=== PATIENT | male | born 1980 | race Caucasian/White ===

== ENCOUNTER 2017-07-09 17:09 | Emergency (ER) | payer SELFPAY ==
[~2017-07-09] VITALS: Ht 182.9 cm; Wt 124.7 kg
[2017-07-09] MEDS ORDERED: IBUP-2055 PO (18:44)
--- NOTE | 2017-07-09 19:01 | ED Chest Pain ---
General Chief Complaint: Chest Wall/Rib Pain Stated Complaint: RIB PAIN Nursing Triage Note: to ER with reports of cough x 2-3 months, but more specifically right rib pain x 4 days. Patient reports that he was coughing so hard the other day, that he "felt a pop" and began having right sided rib pain. Denies any trauma. Nursing Sepsis Screen: No Definite Risk Source: patient History of Present Illness Time seen by provider: 18:40 Initial Comments PT ARRIVES VIA POV FROM HOME C/O PRODUCTIVE COUGH X 2-3 MONTHS AND GETTING WORSE SPUTUM INITIALLY WAS CLEAR, NOW IS GREEN 4 DAYS AGO, HE WAS COUGHING REAL HARD AND HEARD/FELT SOMETHING "POP AND CRACK-- LIKE A CHICKEN BONE SNAPPING" IN RIGHT LOWER RIB AREA AND HAS HAD SEVERE PAIN IN THIS AREA SINCE THEN SLIGHT SHORTNESS OF BREATH, BUT MOSTLY JUST HURTS TO COUGH NO FEVER/SWEATS/CHILLS NO HISTORY OF RESPIRATORY PROBLEMS PT HAS BEEN SEEN AT [facility] 3-4 TIMES FOR THIS, AND HAS BEEN GIVEN TESSALON PERLES, STEROIDS AND AN INHALER, WITHOUT IMPROVEMENT HAD A CXR 3-4 WEEKS AGO AND WAS TOLD THERE WAS "FLUID" IN HIS LUNG, AND WAS GIVEN THE INHALER PT HAS NOT BEEN ON ANY ANTIBIOTICS PT ALSO STATES HE HAS HAD A LUMP ON HIS LEFT SCAPULAR AREA, THAT HAS BEEN GETTING LARGER FOR 6 MONTHS. IS NOT PAINFUL PCP: [facility] Allergies and Home Medications Allergies Coded Allergies: No Known Drug Allergies (Unverified , 07/09/17) Home Medications Ibuprofen 200 Mg Tablet, 800 MG PO Q8H PRN for PAIN-MILD, (Reported) Review of Systems Constitutional: no symptoms reported, No chills, No diaphoresis, No fever EENTM: No Symptoms Reported Respiratory: See HPI, Cough, Shortness of Air, Denies Wheezing Cardiovascular: See HPI, Chest Pain, Denies Edema, Denies Irregular Heart Rate , Denies Lightheadedness, Denies Palpitations, Denies Syncope Gastrointestinal: No Symptoms Reported Genitourinary: No Symptoms Reported Musculoskeletal: no symptoms reported Skin: no symptoms reported Psychiatric/Neurological: No Symptoms Reported Endocrine: No Symptoms Reported Hematologic/Lymphatic: No Symptoms Reported Past Sktzkjz-Cipkga-Puoruj Hx Patient Social History Alcohol Use: Past History (HISTORY OF ABUSE-STATES HE WOULD DRINK HARD LIQUOR + BEER EVERY DAY UNTIL HE PASSED OUT--LAST ETOH 10/2015, PER PT ON 07/09/17) Recreational Drug Use: Yes (THC) Smoking Status: Current Everyday Smoker (1 PPD) Type Used: Cigarettes, Smokeless Tobacco 2nd Hand Smoke Exposure: Yes Recent Foreign Travel: No Contact w/Someone Who Travel: No Recent Infectious Disease Expo: No Recent Hopitalizations: No Physical Abuse: No Sexual Abuse: No Immunizations Up To Date Tetanus Booster (TDap): Less than 5yrs PED Vaccines UTD: Yes Seasonal Allergies Seasonal Allergies: No Surgeries History of Surgeries: Yes (BILATERAL INGUINAL HERNIA REPAIR) Respiratory History of Respiratory Disorde: No Cardiovascular History of Cardiac Disorders: No Neurological History of Neurological Disord: No Genitourinary History of Genitourinary Disor: No Gastrointestinal History of Gastrointestinal Di: Yes (BILATERAL INGUINAL HERNIA REPAIR CHILD) Musculoskeletal History of Musculoskeletal Dis: No Endocrine History of Endocrine Disorders: No HEENT History of HEENT Disorders: No Cancer History of Cancer: No Psychosocial History of Psychiatric Problem: No Suicide Risk Score: 0 Integumentary History of Skin or Integumenta: No Blood Transfusions History of Blood Disorders: No Physical Exam Vital Signs Vital Sign - Last 12Hours 07/09/17 18:39 Temp 98.5 Pulse 82 Resp 16 B/P (MAP) 125/84 Pulse Ox 97 O2 Delivery Room Air Capillary Refill : Less Than 3 Seconds General Appearance: WD/WN HEENT: PERRL/EOMI, Normal ENT Inspection Neck: Full Range of Motion, Normal Inspection, Non Tender Respiratory: Rales (IN BASES BILATERALLY. ), Other (GUARDING RIGHT RIB AREA, AND TENDERESS TO RIGHT LOWER RIB AREA ANTERIOR /LATERAL/ POSTERIOR. NO CREPITANCE OR SUB Q AIR) Cardiovascular: Regular Rate, Rhythm, No Edema, No JVD, No Murmur, Normal Peripheral Pulses, Other (VERY LARGE, SPONGY, NON-TENDER MASS OVER LEFT SCAPULA. NO SKIN DISCOLORATION. ) Gastrointestinal: Normal Bowel Sounds, No Organomegaly, No Pulsatile Mass, Non Tender, Soft Extremity: Normal Capillary Refill, Normal Inspection, Normal Range of Motion, Non Tender, No Calf Tenderness, No Pedal Edema Neurologic/Psychiatric: Alert, Oriented x3, No Motor/Sensory Deficits, Normal Mood/Affect, rn oncology research II-XII Norm as Tested Skin: Normal Color, Warm/Dry, Tattoos/Piercings (EXTENSIVE TATTOOS) Focused Exam Evaluation Lactate Level Laboratory Tests 07/09/17 19:15: Lactic Acid Level 1.16 Lactic Acid Level Laboratory Tests Test 07/09/17 19:15 Lactic Acid Level 1.16 MMOL/L (0.50-2.00) Progress/Results/Core Measures Results/Orders Lab Results Laboratory Tests Test 07/09/17 19:00 07/09/17 19:15 Range/Units White Blood Count 7.6 4.3-11.0 10^3/uL Red Blood Count 4.83 4.35-5.85 10^6/uL Hemoglobin 15.3 13.3-17.7 G/DL Hematocrit 45 40-54 % Mean Corpuscular Volume 93 80-99 FL Mean Corpuscular Hemoglobin 32 25-34 PG Mean Corpuscular Hemoglobin Concent 34 32-36 G/DL Red Cell Distribution Width 12.7 10.0-14.5 % Platelet Count 305 130-400 10^3/uL Mean Platelet Volume 9.0 7.4-10.4 FL Neutrophils (%) (Auto) 54 42-75 % Lymphocytes (%) (Auto) 34 12-44 % Monocytes (%) (Auto) 8 0-12 % Eosinophils (%) (Auto) 3 0-10 % Basophils (%) (Auto) 1 0-10 % Neutrophils # (Auto) 4.1 1.8-7.8 X 10^3 Lymphocytes # (Auto) 2.6 1.0-4.0 X 10^3 Monocytes # (Auto) 0.6 0.0-1.0 X 10^3 Eosinophils # (Auto) 0.2 0.0-0.3 10^3/uL Basophils # (Auto) 0.1 0.0-0.1 10^3/uL Sodium Level 139 135-145 MMOL/L Potassium Level 3.7 3.6-5.0 MMOL/L Chloride Level 103 98-107 MMOL/L Carbon Dioxide Level 25 21-32 MMOL/L Anion Gap 11 5-14 MMOL/L Blood Urea Nitrogen 9 7-18 MG/DL Creatinine 0.86 0.60-1.30 MG/DL Estimat Glomerular Filtration Rate > 60 BUN/Creatinine Ratio 10 Glucose Level 114 H 70-105 MG/DL Calcium Level 9.1 8.5-10.1 MG/DL Total Bilirubin 0.4 0.1-1.0 MG/DL Aspartate Amino Transf (AST/SGOT) 21 5-34 U/L Alanine Aminotransferase (ALT/SGPT) 23 0-55 U/L Alkaline Phosphatase 57 40-136 U/L Total Protein 7.0 6.4-8.2 GM/DL Albumin 4.2 3.2-4.5 GM/DL Lactic Acid Level 1.16 0.50-2.00 MMOL/L My Orders Orders - WILLIE HERNADEZ DO Saline Lock/Iv-Start (07/09/17 18:51) Monitor-Rhythm Ecg Trace Only (07/09/17 18:51) Ct Angio Chest W (07/09/17 18:51) Cbc With Automated Diff (07/09/17 18:51) Comprehensive Metabolic Panel (07/09/17 18:51) Blood Culture (07/09/17 18:51) Chest Pa/Lat (2 View) (07/09/17 18:51) Methylprednisolone Sod Succ (Solu-Medrol (07/09/17 18:51) Lactic Acid Analyzer (07/09/17 18:51) Iohexol Injection (Omnipaque 350 Mg/Ml 1 (07/09/17 19:00) Ns (Ivpb) (Sodium Chloride 0.9% Ivpb Bag (07/09/17 19:00) Pharmacy Communication (Pharmacy Communi (07/09/17 18:53) Medications Given in ED Current Medications Medications Dose Ordered Sig/Trell Route Start Time Stop Time Status Last Admin Dose Admin Iohexol 150 ml ONCE ONCE IV 07/09/17 19:00 07/09/17 19:01 DC 07/09/17 19:31 125 ML Sodium Chloride 100 ml ONCE ONCE IV 07/09/17 19:00 07/09/17 19:01 DC 07/09/17 19:31 80 ML Vital Signs/I&O Vital Sign - Last 12Hours 07/09/17 18:39 Temp 98.5 Pulse 82 Resp 16 B/P (MAP) 125/84 Pulse Ox 97 O2 Delivery Room Air Blood Pressure Mean: 98 Progress Note : Progress Note UNEVENTFUL ER STAY Diagnostic Imaging Comments CXR--ATELECTASIS/INFILTRATE LLL--PER RADIOLOGIST REPORT @ 1955 CT CHEST ANGIO--NO P.E., BIBASILAR ATELECTASIS, NO BONY ABNORMALITIES, FATTY MASS IN SUB Q TISSUES MEDIAL TO LEFT SCAPULA--9 X 11 X 3.5 CM--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 Referrals: [facility] Patient Instructions: Community-Acquired Pneumonia, Adult (DC), Costochondritis (DC), Lipoma Add. Discharge Instructions: LOTS OF CLEAR LIQUIDS TYLENOL AND MOTRIN NEEDED FOR PAIN FOLLOW UP WITH [facility] IN 3-4 DAYS FOR FURTHER CARE--FOR RECHECK OF PNEUMONIA AND REFERRAL TO SURGEON FOR MASS ON BACK All discharge instructions reviewed with patient and/or family. Voiced understanding. Scripts Tramadol HCl (Ultram) 50 Mg Tablet 50 MG PO Q4H, #20 TAB Prov: WILLIE HERNADEZ DO 07/09/17 Benzonatate (Tessalon Perle) 100 Mg Capsule 1-2 TAB PO TID for Cough, #30 CAP Prov: WILLIE HERNADEZ DO 07/09/17 Guaifenesin/Dextromethorphan (Mucinex Dm ER 1,200-60 mg Tab) 1 Each Tbmp.12hr 1 EACH PO BID for 10 Days, #20 EA Prov: WILLIE HERNADEZ DO 07/09/17 Methylprednisolone (Medrol) 4 Mg Tab.ds.pk 4 MG PO UD, #1 PKG Prov: WILLIE HERNADEZ DO 07/09/17 Albuterol Sulfate (PROAIR HFA) 1 Puff Puff 2 PUFF IH Q4H for BREATHING, #1 GM Prov: WILLIE HERNADEZ DO 07/09/17 Levofloxacin (Levaquin) 500 Mg Tablet 500 MG PO DAILY for INFECTION, #15 TAB Prov: WILLIE HERNADEZ DO 07/09/17 Images Torso/Trunk 1 - Moderate, Tenderness 2 - Moderate, Tenderness 3 - Other-See Progress Note Progress LARGE MASS OVER LEFT SCAPULA WILLIE HERNADEZ DO Jul 09, 2017 19:00
[2017-07-09 19:13] LABS: BASOPHILS # (AUTO) 0.1 10^3/uL (0.0-0.1); BASOPHILS % (AUTO) 1 % (0-10); EOSINOPHILS # (AUTO) 0.2 10^3/uL (0.0-0.3); EOSINOPHILS % (AUTO) 3 % (0-10); LYMPHOCYTES # (AUTO) 2.6 X 10^3 (1.0-4.0); LYMPHOCYTES % (AUTO) 34 % (12-44); MEAN CORPUSCULAR HEMOGLOBIN 32 PG (25-34); MEAN CORPUSCULAR HGB CONC 34 G/DL (32-36); MEAN CORPUSCULAR VOLUME 93 FL (80-99); MONOCYTES # (AUTO) 0.6 X 10^3 (0.0-1.0); MONOCYTES % (AUTO) 8 % (0-12); NEUTROPHILS # (AUTO) 4.1 X 10^3 (1.8-7.8); NEUTROPHILS % (AUTO) 54 % (42-75); PLATELET COUNT 305 10^3/uL (130-400); RED BLOOD COUNT 4.83 10^6/uL (4.35-5.85); RED CELL DISTRIBUTION WIDTH 12.7 % (10.0-14.5); WHITE BLOOD COUNT 7.6 10^3/uL (4.3-11.0)
[2017-07-09] MEDS: methylPREDNISolone 125 MG (Solu-MEDROL) VIAL IV STA (19:17)
[2017-07-09] MEDS: IOHEXOL 350 MG/ML 150 ML (OMNIPAQUE 350) VIAL IV ONE (19:31)
[2017-07-09] MEDS: NS 100 ML (IVPB) BAG IV ONE (19:31)
[2017-07-09 19:34] LABS: ALANINE AMINOTRANSFERASE 23 U/L (0-55); ALBUMIN 4.2 GM/DL (3.2-4.5); ANION GAP 11 MMOL/L (5-14); ASPARTATE AMINO TRANSFERASE 21 U/L (5-34); BILIRUBIN,TOTAL 0.4 MG/DL (0.1-1.0); BLOOD UREA NITROGEN 9 MG/DL (7-18); BUN/CREATININE RATIO 10; CALCIUM 9.1 MG/DL (8.5-10.1); CARBON DIOXIDE 25 MMOL/L (21-32); CHLORIDE 103 MMOL/L (98-107); CREATININE SERUM 0.86 MG/DL (0.60-1.30); GFR ESTIMATED > 60; GLUCOSE 114 MG/DL (70-105); POTASSIUM 3.7 MMOL/L (3.6-5.0); SODIUM 139 MMOL/L (135-145)
--- NOTE | 2017-07-09 19:46 | Diagnostic Imaging Report ---
INDICATION: Cough. COMPARISON: None. EXAMINATION: Frontal and lateral views of the chest were obtained. FINDINGS: Atelectasis and possible infiltrate in the left base. The right lung is clear. The heart is normal. No pneumothorax or effusion is seen. IMPRESSION: Atelectasis and/or infiltrate in the left lung base. Dictated by: Dictated on workstation # [id number]
--- NOTE | 2017-07-09 20:00 | Diagnostic Imaging Report ---
PROCEDURE: CT angiography of the chest with contrast. TECHNIQUE: Multiple contiguous axial images were obtained through the chest after uneventful bolus administration of intravenous contrast. Reconstructed CTA MIP acquisitions were also performed. INDICATION: Scapula mass. COMPARISON: None. FINDINGS: The heart, pulmonary arteries, and aorta are grossly normal. There is no pulmonary embolism or aortic pathology. There is some atelectasis in both lung bases, left greater than right. There is no focal infiltrate, effusion, or pneumothorax. Fatty mass is seen medial to the left scapula within the subcutaneous tissues. There does not appear to be muscle involvement. Osseous structures are normal. No soft tissue mass or osseous lesion is identified. The visualized thoracic spine and ribs are normal. IMPRESSION: 1. Basilar atelectasis. 2. Fatty mass medial to the scapula and within the subcutaneous tissues measuring approximately 9 cm craniocaudad, 11 cm transverse, and 3.5 cm AP. This is likely a benign lipoma. MRI with postcontrast imaging recommended to exclude neoplasm such as liposarcoma. Dictated by: Dictated on workstation # [id number]
[2017-07-09] MEDS ORDERED: TRAM-42 PO (20:11)
[2017-07-09] MEDS ORDERED: LEVO500T2 PO (20:11)
[2017-07-09] MEDS ORDERED: RT-ALBUINH IH (20:11)
[2017-07-09] MEDS ORDERED: METH4TAB PO (20:11)
[2017-07-09] MEDS ORDERED: GUAI1TBM19 PO (20:11)
[2017-07-09] MEDS ORDERED: BENZ-13 PO (20:11)
[2017-07-09 20:17] LABS: BILIRUBIN,URINE NEGATIVE (NEGATIVE); KETONES,URINE NEGATIVE (NEGATIVE); LEUKOCYTE ESTERASE ,URINE NEGATIVE (NEGATIVE); NITRITE,URINE NEGATIVE (NEGATIVE); PH,URINE 7 (5-9); PROTEIN,URINE NEGATIVE (NEGATIVE); UROBILINOGEN,URINE NORMAL (NORMAL)
[2017-07-09] MEDS: cefTRIAXone INJECTION 1,000 MG in NS (IVPB) 50 ML IV ONE (20:17)
[2017-07-09] MEDS: LEVOFLOXACIN 500 MG TAB (LEVAQUIN) PO ONE (20:18)
[2017-07-09] MEDS: BENZONATATE 100 MG (TESSALON) CAPSULE PO SCH (20:18)
[2017-07-09 20:41] VITALS: BP 114/78
== END 2017-07-09 20:41 | disposition home or self-care (01) ==
LOC: ER 17:11
DX: S29.011A Strain of muscle and tendon of front wall of thorax, initial encounter (principal); J18.1 Lobar pneumonia, unspecified organism; D17.39 Benign lipomatous neoplasm of skin and subcutaneous tissue of other sites; F17.210 Nicotine dependence, cigarettes, uncomplicated; X50.0XXA Overexertion from strenuous movement or load, initial encounter
CPT/HCPCS: 36415; 71020; 71275; 80053; 81000; 83605; 85025; 87040; 93041